=== PATIENT | male | born 1985 | race Caucasian/White ===

== ENCOUNTER 2021-11-26 09:01 | Emergency (ER) | payer OTHER, MEDICAID ==
[~2021-11-26] VITALS: Ht 190.5 cm; Wt 98.0 kg
[2021-11-26 09:07] VITALS: BP 138/74
--- NOTE | 2021-11-26 09:10 | NUR ---
PT AMBULATED TO ER BED 5
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
[2021-11-26] MEDS: KETOROLAC 60 MG/2 ML VIAL IM ONE (09:52)
[2021-11-26] MEDS: ONDANSETRON 4 MG ODT PO ONE (09:53)
--- NOTE | 2021-11-26 09:56 | NUR ---
Patient was taken to radiology via wheelchair.
[2021-11-26] MEDS ORDERED: CYCL-711 PO (11:50)
[2021-11-26] MEDS ORDERED: NAPR-54 PO (11:50)
--- NOTE | 2021-11-26 12:05 | NUR ---
Patient discharged with v/s stable. Written and verbal after care instructions given. Patient alert, oriented and verbalized understanding of instructions. Ambulatory with steady gait. All questions addressed prior to discharge. ID band removed. Patient advised to follow up with PMD. Rx of Flexeril and Naproxen given. Opportunity to ask questions provided and answered.
--- NOTE | 2021-11-26 12:06 | NUR ---
The patient's care was reviewed and supervised by Doris Lorenzo RN.
== END 2021-11-26 12:06 | disposition home or self-care (01) ==
LOC: MED 09:01
DX: S33.5XXA Sprain of ligaments of lumbar spine, initial encounter (principal); S09.8XXA Other specified injuries of head, initial encounter; F17.200 Nicotine dependence, unspecified, uncomplicated; Z72.89 Other problems related to lifestyle; V29.88XA Motorcycle rider (driver) (passenger) injured in other specified transport accidents, initial encounter; Y93.I9 Activity, other involving external motion; Y92.89 Other specified places as the place of occurrence of the external cause; Y99.8 Other external cause status
CPT/HCPCS: 72110; 96372; 99283; J1885; Q0162